=== PATIENT | female | born 1990 | race Caucasian/White ===

== ENCOUNTER 2016-08-26 00:14 | Emergency (ER) | payer OTHER | END 2016-08-26 01:57 | disposition left against medical advice (07) | LOC: FER 00:14 | DX: F41.0 Panic disorder [episodic paroxysmal anxiety] (principal); R42 Dizziness and giddiness; Z53.20 Procedure and treatment not carried out because of patient's decision for unspecified reasons ==

== ENCOUNTER 2016-11-21 14:17 | Emergency (ER) | payer OTHER | END 2016-11-21 18:04 | disposition home or self-care (01) | LOC: FER 14:17 | DX: S01.01XA Laceration without foreign body of scalp, initial encounter (principal); F41.9 Anxiety disorder, unspecified; F17.210 Nicotine dependence, cigarettes, uncomplicated; Z79.899 Other long term (current) drug therapy; W19.XXXA Unspecified fall, initial encounter; Y99.0 Civilian activity done for income or pay | CPT/HCPCS: 70450; 90471; 90715 ==

== ENCOUNTER 2016-11-23 14:31 | Emergency (ER) | payer OTHER | END 2016-11-23 15:42 | disposition home or self-care (01) | LOC: FER 14:31 | DX: S16.1XXA Strain of muscle, fascia and tendon at neck level, initial encounter (principal); R51 Headache; F41.9 Anxiety disorder, unspecified; F17.210 Nicotine dependence, cigarettes, uncomplicated; Z79.899 Other long term (current) drug therapy; X58.XXXA Exposure to other specified factors, initial encounter | CPT/HCPCS: J1885 ==